=== PATIENT | female | born 1945 | race Caucasian/White ===

== ENCOUNTER 2024-03-27 00:14 | Inpatient (IN) | payer MEDICARE ==
[~2024-03-27] VITALS: Ht 154.9 cm; Wt 63.6 kg
[~2024-03-27 00:14] MED LIST: ATOR10TA70 PO; CARV3.12 PO; FURO-150 PO; LISI2.5T14 PO; POTA-206 PO; SPIR25TA PO; WARF-55 PO
[2024-03-27 00:38] LABS: ALANINE AMINOTRANSFERASE 105 U/L (12-78); ALBUMIN/GLOBULIN RATIO 1.1 (1.1-1.5); ALKALINE PHOSPHATASE 95 IU/L (46-116); ANION GAP 10 (8-16); ASPARTATE AMINO TRANSFERASE 117 U/L (10-37); BASOPHILS # (AUTO) 0.1 X10'3 (0-0.2); BASOPHILS % (AUTO) 1.2 % (0-1); BILIRUBIN,TOTAL 0.4 MG/DL (0.1-1.0); BLOOD UREA NITROGEN 8 MG/DL (7-18); BUN/CREATININE RATIO 9.2 (10.0-20.0); CALCIUM 9.3 MG/DL (8.5-10.1); CHLORIDE 104 MMOL/L (99-107); CREATININE 0.87 MG/DL (0.40-0.90); EOSINOPHILS # (AUTO) 0.4 X10'3 (0-0.9); EOSINOPHILS % (AUTO) 6.7 % (0-6); GLUCOSE 139 MG/DL (70-104); HEMATOCRIT 42.3 % (35.0-45.0); HEMOGLOBIN 14.1 g/dl (12.0-16.0); LYMPHOCYTES # (AUTO) 2.2 X10'3 (1.1-4.8); LYMPHOCYTES % (AUTO) 33.3 % (21-51); MEAN CORPUSCULAR HEMOGLOBIN 31.8 PG (27.0-31.0); MEAN CORPUSCULAR HGB CONC 33.3 g/dL (33.0-36.5); MEAN CORPUSCULAR VOLUME 95.4 FL (78-98); MEAN PLATELET VOLUME 10.1 FL (7.4-10.4); MONOCYTES # (AUTO) 0.5 X10'3 (0-0.9); MONOCYTES % (AUTO) 7.2 % (2-12); NEUTROPHILS # (AUTO) 3.4 X10'3 (1.8-7.7); NEUTROPHILS % (AUTO) 51.6 % (42-75); PLATELET COUNT 222 X10'3 (140-440); POTASSIUM 3.3 MMOL/L (3.5-5.1); RED BLOOD COUNT 4.44 X10'6 (4.20-5.60); RED CELL DISTRIBUTION WIDTH 13.9 % (11.5-14.5); SODIUM 143 MMOL/L (135-145); TOTAL CARBON DIOXIDE 29.5 MMOL/L (24-32); TOTAL PROTEIN 7.6 G/DL (6.4-8.2); WHITE BLOOD COUNT 6.6 X10'3 (4.5-11.0); eCRCL 41 ML/MIN; eGFR 63 ML/MIN
[2024-03-27 00:46] LABS: PRO BRAIN NATRIURETIC PEPTIDE 3831 PG/ML (0-450)
[2024-03-27 01:35] LABS: D-DIMER 0.22 MG/L FEU (0-0.50)
[2024-03-27] MEDS ORDERED: metoprolol tartrate 50mg tablet PO ONE (02:05)
[2024-03-27] MEDS: metoprolol tartrate 25mg tablet PO ONE (02:13)
[2024-03-27] MEDS: metoclopramide 5 mg/ml inj IV ONE (02:39)
[2024-03-27] MEDS: metoprolol tartrate 1mg/ml inj IV ONE (02:49)
[2024-03-27 03:29] LABS: INR 3.8 INR; PROTHROMBIN TIME 36.2 SECONDS (9.0-12.0)
[2024-03-27] MEDS ORDERED: WARF-55 PO (03:46)
[2024-03-27] MEDS ORDERED: potassium Cl 40MEQ/1/2NS 520ml 520 ML IV PRN (05:35)
[2024-03-27] MEDS ORDERED: magnesium Cl slow-release 64mg tablet PO PRN (05:35)
[2024-03-27] MEDS ORDERED: magnesium hydroxide 30ml (MOM) UD suspension PO PRN (05:35)
[2024-03-27] MEDS ORDERED: potassium Cl 20 mEq SR tablet PO PRN (05:35)
[2024-03-27] MEDS ORDERED: acetaminophen 325mg tablet PO PRN ×2 (05:35)
[2024-03-27] MEDS ORDERED: magnesium sulf-water 4G/100mL 100 ML IV PRN (05:35)
[2024-03-27] MEDS ORDERED: mag hydrox/Alum hydrox/simeth 30ml oral suspension PO PRN (05:35)
[2024-03-27] MEDS ORDERED: ondansetron/PF 4mg/2ml inj IV PRN (05:35)
[2024-03-27] MEDS ORDERED: magnesium sulf-water 2g/50mL 50 ML IV PRN (05:35)
[2024-03-27] MEDS ORDERED: morphine 2 MG/ML inj. syringe IV PRN ×2 (05:35)
[2024-03-27] MEDS ORDERED: PERFLUTREN PROTEIN-A MICROSPHR (Optison) 0.22 MG/ML 3ML VIAL IV PRN (05:45)
[2024-03-27 06:42] LABS: POTASSIUM 4.2 MMOL/L (3.5-5.1)
[2024-03-27 07:31] LABS: BILIRUBIN,URINE NEGATIVE (Neg); CLARITY,URINE CLEAR (Clear); COLOR,URINE STRAW (Yellow); GLUCOSE, URINE NEGATIVE (Neg); KETONES,URINE NEGATIVE (Neg); LEUKOCYTE ESTERASE ,URINE NEGATIVE (Neg); NITRITES, URINE NEGATIVE (Neg); OCCULT BLOOD,URINE TRACE-INTACT (Neg); PROTEIN,URINE NEGATIVE (Neg); UA COLLECTION TYPE NON-SPECIFIED; UROBILINOGEN,URINE 0.2 E.U/dL (0.2-1.0)
[2024-03-27 07:37] LABS: BACTERIA,URINE NONE SEEN /HPF (Neg); MUCUS STRANDS NONE SEEN /LPF (Neg); RBC,URINE 0-2 /HPF (0-2); SQUAMOUS EPITHELIAL CELL,UR NONE SEEN /LPF (FEW); WBC,URINE NONE SEEN /HPF (0-4)
[2024-03-27] MEDS: K and/or MAG REPLACEMENT MC SCH (08:00)
[2024-03-27] MEDS: docusate sod 100mg capsule PO SCH (08:35)
[2024-03-27] MEDS: furosemide 40mg/4ml inj IV SCH (08:35)
[2024-03-27] MEDS: metoprolol succinate 25mg (24-HOUR) SR. Tablet PO SCH (08:35)
[2024-03-27] MEDS ORDERED: heparin 10,000 units/1 ML INJ IV ONE (08:45)
[2024-03-27] MEDS ORDERED: heparin 10,000 units/1 ML INJ IV PRN (08:45)
[2024-03-27] MEDS ORDERED: heparin 25,000 UNIT/250ml bag 250 ML IV PRN (08:45)
[2024-03-27 09:08] LABS: BASOPHILS # (AUTO) 0.1 X10'3 (0-0.2); BASOPHILS % (AUTO) 0.8 % (0-1); EOSINOPHILS # (AUTO) 0.2 X10'3 (0-0.9); EOSINOPHILS % (AUTO) 2.3 % (0-6); HEMATOCRIT 39.4 % (35.0-45.0); HEMOGLOBIN 13.3 g/dl (12.0-16.0); LYMPHOCYTES # (AUTO) 1.1 X10'3 (1.1-4.8); LYMPHOCYTES % (AUTO) 15.2 % (21-51); MEAN CORPUSCULAR HEMOGLOBIN 31.6 PG (27.0-31.0); MEAN CORPUSCULAR HGB CONC 33.7 g/dL (33.0-36.5); MEAN PLATELET VOLUME 9.6 FL (7.4-10.4); MONOCYTES # (AUTO) 0.6 X10'3 (0-0.9); MONOCYTES % (AUTO) 7.7 % (2-12); NEUTROPHILS # (AUTO) 5.6 X10'3 (1.8-7.7); PLATELET COUNT 192 X10'3 (140-440); RED BLOOD COUNT 4.19 X10'6 (4.20-5.60); RED CELL DISTRIBUTION WIDTH 13.7 % (11.5-14.5); WHITE BLOOD COUNT 7.6 X10'3 (4.5-11.0)
[2024-03-27 09:36] LABS: INR 4.4 INR
[2024-03-27 15:45] VITALS: BP 148/93; PULSE 92; RESP 16; O2SAT 96
[2024-03-27] MEDS: lisinopril 5mg tablet PO SCH (17:13)
[2024-03-27 17:14] VITALS: BP 140/112; PULSE 110
[2024-03-27 18:00] VITALS: BP 145/84; PULSE 110; RESP 16; TEMP 97.9; O2SAT 94
[2024-03-27 20:00] VITALS: RESP 20; O2SAT 95
[2024-03-27 22:00] VITALS: BP 101/57; PULSE 98; RESP 20; TEMP 97.6; O2SAT 95
[2024-03-28 02:00] VITALS: BP 105/56; PULSE 91; RESP 19; TEMP 97; O2SAT 95
[2024-03-28 04:41] VITALS: RESP 20; O2SAT 95
[2024-03-28 06:00] VITALS: BP 113/78; PULSE 88; RESP 12; TEMP 98.2; O2SAT 97
[2024-03-28 06:40] LABS: BASOPHILS # (AUTO) 0.1 X10'3 (0-0.2); BASOPHILS % (AUTO) 1.2 % (0-1); EOSINOPHILS # (AUTO) 0.3 X10'3 (0-0.9); EOSINOPHILS % (AUTO) 5.3 % (0-6); HEMATOCRIT 40.4 % (35.0-45.0); HEMOGLOBIN 13.7 g/dl (12.0-16.0); LYMPHOCYTES # (AUTO) 1.7 X10'3 (1.1-4.8); MEAN CORPUSCULAR HEMOGLOBIN 31.8 PG (27.0-31.0); MEAN CORPUSCULAR VOLUME 93.5 FL (78-98); MEAN PLATELET VOLUME 10.3 FL (7.4-10.4); MONOCYTES # (AUTO) 0.6 X10'3 (0-0.9); MONOCYTES % (AUTO) 9.5 % (2-12); NEUTROPHILS # (AUTO) 3.8 X10'3 (1.8-7.7); PLATELET COUNT 218 X10'3 (140-440); RED BLOOD COUNT 4.32 X10'6 (4.20-5.60); RED CELL DISTRIBUTION WIDTH 13.7 % (11.5-14.5); WHITE BLOOD COUNT 6.5 X10'3 (4.5-11.0)
[2024-03-28 06:56] LABS: ALANINE AMINOTRANSFERASE 69 U/L (12-78); ALBUMIN 3.4 G/DL (3.4-5.0); ALKALINE PHOSPHATASE 77 IU/L (46-116); ANION GAP 5 (8-16); ASPARTATE AMINO TRANSFERASE 44 U/L (10-37); BILIRUBIN,TOTAL 0.7 MG/DL (0.1-1.0); BLOOD UREA NITROGEN 18 MG/DL (7-18); CALCIUM 8.8 MG/DL (8.5-10.1); CHLORIDE 101 MMOL/L (99-107); CHOL/HDL RATIO 4.1 (0.00-4.99); CHOLESTEROL 298 MG/DL (0-200); CREATININE 0.82 MG/DL (0.40-0.90); GLUCOSE 107 MG/DL (70-104); HDL CHOLESTEROL 73 MG/DL (35-60); LDL CHOLESTEROL 206 MG/DL (50-100); MAGNESIUM 2.8 MG/DL (1.5-2.4); POTASSIUM 3.4 MMOL/L (3.5-5.1); SODIUM 138 MMOL/L (135-145); TOTAL CARBON DIOXIDE 31.7 MMOL/L (24-32); TOTAL PROTEIN 6.7 G/DL (6.4-8.2); TRIGLYCERIDES 82 MG/DL (20-135); eCRCL 43 ML/MIN; eGFR 68 ML/MIN
[2024-03-28 08:00] VITALS: RESP 18; O2SAT 94
[2024-03-28] MEDS: potassium Cl 20 mEq SR tablet PO PRN (08:28)
[2024-03-28 08:38] VITALS: PULSE 111
[2024-03-28] MEDS: spironolactone 25 MG tablet PO SCH (08:38)
[2024-03-28] MEDS ORDERED: LISI5TAB22 PO (15:54)
[2024-03-28] MEDS ORDERED: POTA-207 PO (15:54)
[2024-03-28] MEDS ORDERED: METO-395 PO (15:54)
[2024-03-28] MEDS ORDERED: FURO40TA4 PO (15:54)
[2024-03-28] MEDS ORDERED: SPIR25TA5 PO (15:54)
[2024-03-28] MEDS ORDERED: ATOR-2 PO (15:54)
[2024-03-29] MEDS ORDERED: atorvastatin 20mg tablet PO SCH (08:00)
== END 2024-03-28 16:45 | disposition home or self-care (01) | DRG 280 ==
LOC: ER 00:15 → ED HOLD 03:32 → PCU 3S 18:01
PROVIDERS: ADMIT Internal Medicine Critical Care Medicine; ATTEND Internal Medicine
DX: I11.0 Hypertensive heart disease with heart failure (principal); I50.23 Acute on chronic systolic (congestive) heart failure; I21.A1 Myocardial infarction type 2; I48.20 Chronic atrial fibrillation, unspecified; I25.10 Atherosclerotic heart disease of native coronary artery without angina pectoris; E78.5 Hyperlipidemia, unspecified; E87.6 Hypokalemia; I25.2 Old myocardial infarction; Z91.013 Allergy to seafood; Z82.49 Family history of ischemic heart disease and other diseases of the circulatory system; Z91.148 Patient's other noncompliance with medication regimen for other reason; Z79.01 Long term (current) use of anticoagulants
CPT/HCPCS: 36415; 71045; 80053; 80061; 81001; 83735; 83880; 84132; 84484; 85025; 85379; 85610; 85730; 87081; 93005; 93306; A6258; G0378; J1940; J3490; J7030